=== PATIENT | female | born 1940 | race African-American/Black ===

== ENCOUNTER 2016-11-22 17:30 | Observation (INO) | payer OTHER ==
--- NOTE | 2016-11-22 17:50 | PDOC ---
History of Present Illness <Vera Guaman - Last Filed: 11/22/16 22:27> <Hansa French - Last Filed: 11/22/16 22:36> - General Stated Complaint: CHEST PAIN Time Seen by Provider: 11/22/16 17:43 - History of Present Illness Initial Comments: 11/22/16 22:22 76 y/o F with a PMHx of stroke, NSTEMI (2013), cataracts, HTN, hypercholesterolemia, anxiety presents to the ED, BIBA from home, with left sided chest pain. Patient complained of chest pain to her A OPERATOR, who called ambulance. Patient had a stress test done in 2013, which showed no evidence of ischemia and normal LV size and function. Denies SOB, headache, dizziness. Denies diaphoresis, nausea, vomiting, diarrhea. PCP: Dr. Radha Goldberg (Vera Guaman) Past History <Vera Guaman - Last Filed: 11/22/16 22:27> - Past Medical History Anemia: No Asthma: No Cancer: No Cardiac Disorders: No CVA: No COPD: No CHF: No Dementia: No Diabetes: No GI Disorders: No Disorders: No HTN: Yes Hypercholesterolemia: Yes Liver Disease: No Psychiatric Problems: Yes (anxienty,) Suicide Attempt (Hx): No Seizures: No Thyroid Disease: No - Surgical History Abdominal Surgery: No Appendectomy: No Cardiac Surgery: No Cholecystectomy: Yes Lung Surgery: No Neurologic Surgery: No Orthopedic Surgery: No - Immunization History Immunization Up to Date: Yes - Psycho/Social/Smoking Cessation Hx Anxiety: Yes Suicidal Ideation: No Smoking Status: Yes Smoking History: Never smoked Have you smoked in the past 12 months: No Number of Cigarettes Smoked Daily: 10 'Breaking Loose' booklet given: 11/01/12 Hx Alcohol Use: No Drug/Substance Use Hx: No Substance Use Type: None, Alcohol Hx Substance Use Treatment: No <Hansa French - Last Filed: 11/22/16 22:36> - Past Medical History Allergies/Adverse Reactions: Allergies Allergy/AdvReac Type Severity Reaction Status Date / Time ibuprofen Allergy Unknown Verified 11/22/16 18:10 Home Medications: Ambulatory Orders Acetaminophen [Tylenol -] 1,000 mg PO Q6H #100 tablet 05/26/16 Aspirin [Aspirin EC] 325 mg PO DAILY 05/26/16 Atorvastatin Ca [Lipitor] 20 mg PO HS 05/26/16 Lisinopril [Prinivil -] 40 mg PO DAILY 05/26/16 Metoprolol Succinate [Toprol Xl -] 50 mg PO DAILY 05/26/16 Ranolazine [Ranexa -] 500 mg PO BID 05/26/16 Sertraline HCl [Zoloft -] 50 mg PO DAILY 05/26/16 Tramadol HCl 50 mg PO BID PRN 05/26/16 Cardiac Specific PMH - Complaint Specific PMHX Pacemaker: No <Hansa French - Last Filed: 11/22/16 22:36> Review of Systems <Vera Guaman - Last Filed: 11/22/16 22:27> <Hansa French - Last Filed: 11/22/16 22:36> - Review of Systems Comments:: 11/22/16 22:23 CONSTITUTIONAL: Absent: fever, chills, diaphoresis, generalized weakness, malaise, loss of appetite HEENT: Absent: rhinorrhea, nasal congestion, throat pain, throat swelling, difficulty swallowing, mouth swelling, ear pain, eye pain, visual changes CARDIOVASCULAR: Absent: chest pain, syncope, palpitations, irregular heart rate , lightheadedness, peripheral edema RESPIRATORY: Absent: cough, shortness of breath, dyspnea with exertion, orthopnea, wheezing, stridor, hemoptysis GASTROINTESTINAL: Absent: abdominal pain, abdominal distension, nausea, vomiting , diarrhea, constipation, melena, hematochezia GENITOURINARY: Absent: dysuria, frequency, urgency, hesitancy, hematuria, flank pain, genital pain MUSCULOSKELETAL: Absent: myalgia, arthralgia, joint swelling SKIN: Absent: rash, itching, pallor HEMATOLOGIC/IMMUNOLOGIC: Absent: easy bleeding, easy bruising, lymphadenopathy, frequent infections ENDOCRINE: Absent: unexplained weight gain, unexplained weight loss, heat intolerance, cold intolerance NEUROLOGIC: Absent: headache, focal weakness or paresthesias, dizziness, unsteady gait, seizure, mental status changes, bladder or bowel incontinence PSYCHIATRIC: Absent: anxiety, depression, suicidal or homicidal ideation, hallucinations. (Vera Guaman) *Physical Exam <Vera Guaman - Last Filed: 11/22/16 22:27> <ManoloHansa Fernandez - Last Filed: 11/22/16 22:36> - Vital Signs Last Vital Signs Temp Pulse Resp BP Pulse Ox 98.1 F 75 22 150/67 99 11/22/16 18:00 11/22/16 18:00 11/22/16 18:00 11/22/16 18:00 11/22/16 18:00 - Physical Exam Comments: 11/22/16 22:23 GENERAL: Well developed, well nourished. Awake and alert. No acute distress. Obese. HEENT: Normocephalic, atraumatic. PERRLA, EOMI. No conjunctival pallor. Sclera are non-icteric. Moist mucous membranes. Oropharynx is clear. NECK: Supple. Full ROM. No JVD. Carotid pulses 2+ and symmetric, without bruits. No thyromegaly. No lymphadenopathy. CARDIOVASCULAR: Regular rate and rhythm. No murmurs, rubs, or gallops. Distal pulses are 2+ and symmetric. PULMONARY: No evidence of respiratory distress. Lungs clear to auscultation bilaterally. No wheezing, rales or rhonchi. ABDOMINAL: Protuberant but soft. Non-tender. Non-distended. No rebound or guarding. No organomegaly. Normoactive bowel sounds. MUSCULOSKELETAL: Normal range of motion at all joints. No bony deformities or tenderness. No CVA tenderness. EXTREMITIES: No cyanosis. No clubbing. No pitting edema. No calf tenderness. SKIN: Warm and dry. Normal capillary refill. No rashes. No jaundice. NEUROLOGICAL: Alert, awake, appropriate. Cranial nerves 2-12 intact. No deficits to light touch and temperature in face, upper extremities and lower extremities. No motor deficits in the in face, upper extremities and lower extremities. Normoreflexic in the upper and lower extremities. Normal speech. Toes are downgoing bilaterally. Gait is normal without ataxia. PSYCHIATRIC: Cooperative. Good eye contact. Appropriate mood and affect. (Vera Guaman) Heart Score/ECG Review - History History: Slightly suspicious - Electrocardiogram EKG: Normal - Age Age: >/= 65 - Risk Factors Risk Factors Heart Score: Yes Hx Hypertension, Yes Hx Obesity Based on the list above the patient has:: 1-2 risk factors - Troponin Troponin: </= normal limit - Score Heart Score - Total: 3 - ECG Intrepretation Rhythm: Regular Rhythm - P and MN Atrial Enlargement: Left Delta Wave(s) Present: No WPW: No - ST and T Early Repolarization: No Flattened T Waves: Yes Prolonged Q-T Interval: Yes - ECG Impressions Torsades dmitriy Pointes: No WPW: No <Hansa French - Last Filed: 11/22/16 22:36> ED Treatment Course - LABORATORY CBC & Chemistry Diagram: 11/22/16 18:36 11/22/16 19:56 <Vera Guaman - Last Filed: 11/22/16 22:27> - LABORATORY CBC & Chemistry Diagram: 11/22/16 18:36 11/22/16 19:56 <Hansa French - Last Filed: 11/22/16 22:36> - ADDITIONAL ORDERS Additional order review: Laboratory Results 11/22/16 11/22/16 11/22/16 19:56 19:56 18:36 INR Sodium 142 Cancelled Potassium 4.1 Cancelled Chloride 107 Cancelled Carbon Dioxide 29 Cancelled Anion Gap 6 L Cancelled BUN 11 D Cancelled Creatinine 0.7 Cancelled Creat Clearance w eGFR > 60 Cancelled Random Glucose 77 D Cancelled Calcium 9.0 Cancelled Magnesium 2.1 Cancelled Total Bilirubin 0.3 D Cancelled AST 17 Cancelled ALT 18 D Cancelled Alkaline Phosphatase 83 Cancelled Creatine Kinase 45 Cancelled Troponin I < 0.02 Cancelled B-Natriuretic Peptide 465.78 H Cancelled Total Protein 6.8 Cancelled Albumin 3.1 L Cancelled 11/22/16 18:36 INR 1.08 Sodium Potassium Chloride Carbon Dioxide Anion Gap BUN Creatinine Creat Clearance w eGFR Random Glucose Calcium Magnesium Total Bilirubin AST ALT Alkaline Phosphatase Creatine Kinase Troponin I B-Natriuretic Peptide Total Protein Albumin 11/22/16 18:36 RBC 3.91 MCV 90.8 MCHC 33.6 RDW 14.0 MPV 10.8 Neutrophils % 49.9 Lymphocytes % 30.8 Monocytes % 15.4 H Eosinophils % 3.2 Basophils % 0.7 - RADIOLOGY Radiology Studies Ordered: Category Date Time Status CHEST X-RAY PORTABLE* [RAD] Stat Radiology 11/22/16 19:26 Taken *DC/Admit/Observation/Transfer <Vera Guaman - Last Filed: 11/22/16 22:27> - Discharge Dispostion Admit: Yes <Hansa French - Last Filed: 11/22/16 22:36> Diagnosis at time of Disposition: Chest pain Qualifiers: Chest pain type: precordial pain Qualified Code(s): R07.2 - Precordial pain - Referrals Referrals: Radha Goldberg MD [Primary Care Provider] - - Attestations Scribe Attestion: 11/22/16 22:23 Documentation prepared by Vera Guaman, acting as medical center manager for Hansa French MD. (Vera Guaman
[2016-11-22 19:20] LABS: BASOPHIL 0.7 % (0-2.0); EOSINOPHIL 3.2 % (0-4.5); MCH 30.5 pg (25.7-33.7); MCHC 33.6 g/dl (32.0-36.0); MEAN CELL VOLUME 90.8 fl (80-96); MEAN PLT VOLUME 10.8 fl (7.5-11.1); NEUTROPHILS 49.9 % (42.8-82.8); PLATELET COUNT 191 K/MM3 (134-434); WHITE BLOOD COUNT 6.3 K/mm3 (4.0-10.0)
[2016-11-22 19:28] LABS: INR 1.08 (0.82-1.09); PROTHROMBIN TIME (PATIENT) 11.9 SEC (9.98-11.88)
[2016-11-22 20:56] LABS: ALBUMIN 3.1 g/dl (3.4-5.0); ANION GAP 6 (8-16); BILIRUBIN,TOTAL 0.3 mg/dL (0.2-1.0); CO2 29 mmol/L (21-32); CREATININE 0.7 mg/dL (0.55-1.02); GLUCOSE,RANDOM 77 mg/dL (74-106); MAGNESIUM 2.1 mg/dL (1.8-2.4); SGOT/AST 17 U/L (15-37); SGPT/ALT 18 U/L (12-78); TOT PROT 6.8 g/dl (6.4-8.2)
[2016-11-22 20:59] LABS: ALK PHOS 83 U/L (45-117)
[2016-11-22 21:12] LABS: CPK 45 IU/L (26-192); TROPONIN I < 0.02 ng/ml (0.00-0.05)
--- NOTE | 2016-11-22 22:34 | PN ---
Teaching Attending Note Name of Resident: Flash Whiting ATTENDING PHYSICIAN STATEMENT I saw and evaluated the patient. I reviewed the resident's note and discussed the case with the resident. I agree with the resident's findings and plan as documented. SUBJECTIVE: 76 yo F with pmhx of CVA, NSTEMI (14'), Cataracts, HTN, HLD, and anxiety who presents with chest pain. Last stress was done (), which showed no evidence of Ischemia. States her pain is more in her colette-epigastric area radiating upto her chest. States her chest pain has improved and denies any shortness of breath PCP: Dr. Goldberg ALLERGIES; NSAIDS OBJECTIVE: Physical: VS: Vital Signs Period Temp Pulse Resp BP Sys/Carbajal Pulse Ox Last 24 Hr 98.1 F 75 22 150/67 99 GEN:NAD, resting in bed HEENT: NCAT, PERRL, Throat without erythema or exudates CARD: I/IVSem RRR S1, S2 RESP: CTAB ABD: BSX4, NTD to palpation EXT: - C/C/E CBCD WBC 6.3 K/mm3 (4.0-10.0) 11/22/16 18:36 RBC 3.91 M/mm3 (3.60-5.2) 11/22/16 18:36 Hgb 11.9 GM/dL (10.7-15.3) 11/22/16 18:36 Hct 35.5 % (32.4-45.2) 11/22/16 18:36 MCV 90.8 fl (80-96) 11/22/16 18:36 MCHC 33.6 g/dl (32.0-36.0) 11/22/16 18:36 RDW 14.0 % (11.6-15.6) 11/22/16 18:36 Plt Count 191 K/MM3 (134-434) 11/22/16 18:36 MPV 10.8 fl (7.5-11.1) 11/22/16 18:36 CMP Sodium 142 mmol/L (136-145) 11/22/16 19:56 Potassium 4.1 mmol/L (3.5-5.1) 11/22/16 19:56 Chloride 107 mmol/L (98-107) 11/22/16 19:56 Carbon Dioxide 29 mmol/L (21-32) 11/22/16 19:56 Anion Gap 6 (8-16) L 11/22/16 19:56 BUN 11 mg/dL (7-18) D 11/22/16 19:56 Creatinine 0.7 mg/dL (0.55-1.02) 11/22/16 19:56 Creat Clearance w eGFR > 60 (>60) 11/22/16 19:56 Random Glucose 77 mg/dL (74-106) D 11/22/16 19:56 Calcium 9.0 mg/dL (8.5-10.1) 11/22/16 19:56 Total Bilirubin 0.3 mg/dL (0.2-1.0) D 11/22/16 19:56 AST 17 U/L (15-37) 11/22/16 19:56 ALT 18 U/L (12-78) D 11/22/16 19:56 Alkaline Phosphatase 83 U/L (45-117) 11/22/16 19:56 Total Protein 6.8 g/dl (6.4-8.2) 11/22/16 19:56 Albumin 3.1 g/dl (3.4-5.0) L 11/22/16 19:56 CARDIAC ENZYMES Creatine Kinase 45 IU/L (26-192) 11/22/16 19:56 Troponin I < 0.02 ng/ml (0.00-0.05) 11/22/16 19:56 EKG: NSR, No acute St-T changes CXR: No acute process HEART 3 Home Medications Medication Instructions Recorded Acetaminophen [Tylenol -] 1,000 mg PO Q6H #100 tablet 05/26/16 Aspirin [Aspirin EC] 325 mg PO DAILY 05/26/16 Atorvastatin Ca [Lipitor] 20 mg PO HS 05/26/16 Lisinopril [Prinivil -] 40 mg PO DAILY 05/26/16 Metoprolol Succinate [Toprol Xl -] 50 mg PO DAILY 05/26/16 Ranolazine [Ranexa -] 500 mg PO BID 05/26/16 Sertraline HCl [Zoloft -] 50 mg PO DAILY 05/26/16 Tramadol HCl 50 mg PO BID PRN 05/26/16 ECHO- 04/28 ASSESSMENT AND PLAN: 76 yo f with hx of obesity, NSTEMI?, Cataracts, HTN, HLD, CVA who presents with chest pain 1.) Chest Pain- Atypical - RO ACS - Trend Trop/EKG - ASA - HEART 3 - Morphine prn pain - C/W Ranexa - Echo - C/W BB - lipid Panel/A1c - C/w Statin - 02 2L NC 2.) Abdominal Pain- /Gastritis - Omeprazole 3.) HTN - C/W Home meds 4.) HLD - Chk. Lipid panel - C/W Statin 5.) Dvt Ppx - Ambulate
[2016-11-22] MEDS ORDERED: ASPIRIN 81 MG CHEWABLE TABLETS PO ONE (22:45)
[2016-11-22] MEDS ORDERED: morphine CARPU-JECT 2 MG/1 ML DISP.SYRIN IVPUSH PRN (23:30)
[2016-11-22] MEDS ORDERED: PANTOPRAZOLE 40 MG TABLET (FP) PO ONE (23:30)
--- NOTE | 2016-11-22 23:54 | HP ---
CHIEF COMPLAINT: Chest Pain PCP: Radha Goldberg HISTORY OF PRESENT ILLNESS: 76 y.o. F with significant PMH of CVA 3-4 years ago, NSTEMI (2014 w/ no ischemia ), HTN, HLD, former smoker presenting with 2 months of intermittent substernal chest pain. Patient brought in by ambulance after she told her home health aid about the pain. Pain is pressure-like, nonradiating, 6/10, worse upon coughing, and lasts a few seconds. Patient takes ranexa to alleviate the pain. Patient also endorses luq abdominal pain. Patient has never had a cardiac catheterization or colonoscopy in the past. Denies fevers, chills, N/V/D/C, SOB , palpitations, hematemesis, hematochezia. ER course was notable for: (1) CBC/BMP- wnl. Trops negative x1 (2) CXR (3) EKG- nsr, left atrial enlargement Recent Travel: denies PAST MEDICAL HISTORY: CVA (3-4 yrs ago with no residual deficits), NSTEMI in 2013, cataracts, htn, hld, anxiety, rheumatoid arthritis PAST SURGICAL HISTORY: cholecystectomy and foot surgery Social History: Smoking: previous smoker 1 ppd >30 years Alcohol: denies Drugs: denies Family History: HTN- mother, HLD-daughter Allergies ibuprofen Allergy (Unknown, Verified 11/22/16 18:10) , SWELLING HOME MEDICATIONS: Home Medications Medication Instructions Recorded Acetaminophen [Tylenol -] 1,000 mg PO Q6H #100 tablet 05/26/16 Aspirin [Aspirin EC] 325 mg PO DAILY 05/26/16 Atorvastatin Ca [Lipitor] 20 mg PO HS 05/26/16 Lisinopril [Prinivil -] 40 mg PO DAILY 05/26/16 Metoprolol Succinate [Toprol Xl -] 50 mg PO DAILY 05/26/16 Ranolazine [Ranexa -] 500 mg PO BID 05/26/16 Sertraline HCl [Zoloft -] 50 mg PO DAILY 05/26/16 Tramadol HCl 50 mg PO BID PRN 05/26/16 REVIEW OF SYSTEMS CONSTITUTIONAL: Absent: fever, chills, diaphoresis, generalized weakness, malaise, loss of appetite, weight change HEENT: Absent: rhinorrhea, nasal congestion, throat pain, throat swelling, difficulty swallowing, mouth swelling, ear pain, eye pain, visual changes CARDIOVASCULAR: Absent: chest pain, syncope, palpitations, irregular heart rate, lightheadedness , peripheral edema RESPIRATORY: Absent: cough, shortness of breath, dyspnea with exertion, orthopnea, wheezing, stridor, hemoptysis GASTROINTESTINAL: Absent: abdominal pain, abdominal distension, nausea, vomiting, diarrhea, constipation, melena, hematochezia GENITOURINARY: Absent: dysuria, frequency, urgency, hesitancy, hematuria, flank pain, genital pain MUSCULOSKELETAL: Absent: myalgia, arthralgia, joint swelling, back pain, neck pain SKIN: Absent: rash, itching, pallor HEMATOLOGIC/IMMUNOLOGIC: Absent: easy bleeding, easy bruising, lymphadenopathy, frequent infections ENDOCRINE: Absent: unexplained weight gain, unexplained weight loss, heat intolerance, cold intolerance NEUROLOGIC: Absent: headache, focal weakness or paresthesias, dizziness, unsteady gait, seizure, mental status changes, bladder or bowel incontinence PSYCHIATRIC: Absent: anxiety, depression, suicidal or homicidal ideation, hallucinations. PHYSICAL EXAMINATION Vital Signs - 24 hr 11/22/16 18:00 Temperature 98.1 F Pulse Rate 75 Respiratory 22 Rate Blood Pressure 150/67 O2 Sat by Pulse 99 Oximetry (%) GENERAL: Awake, alert, and fully oriented, in no acute distress. HEAD: Normal with no signs of trauma. EYES: Pupils equal, round and reactive to light, extraocular movements intact, sclera anicteric, conjunctiva clear. No lid lag. EARS, NOSE, THROAT: Oropharynx clear without exudates. Moist mucous membranes. NECK: Normal range of motion, supple without lymphadenopathy, JVD, or masses. LUNGS: Breath sounds equal, clear to auscultation bilaterally. No wheezes, and no crackles. No accessory muscle use. HEART: Regular rate and rhythm, normal S1 and S2, +murmur over right and left sternal borders (3/6) ABDOMEN: Soft, +epigastric and LUQ tenderness to palpation, not distended, normoactive bowel sounds, no guarding, no rebound, no masses. No hepatomegaly or splenomegaly. MUSCULOSKELETAL: Normal range of motion at all joints. No bony deformities or tenderness. No CVA tenderness. UPPER EXTREMITIES: 2+ pulses, warm, well-perfused. No cyanosis. No clubbing. No peripheral edema. LOWER EXTREMITIES: 2+ pulses, warm, well-perfused. No calf tenderness. No peripheral edema. NEUROLOGICAL: Cranial nerves II-XII intact. Normal speech. Gait not assessed PSYCHIATRIC: Cooperative. Good eye contact. Appropriate mood and affect. Laboratory Results - last 24 hr 11/22/16 11/22/16 11/22/16 18:36 18:36 18:36 WBC 6.3 RBC 3.91 Hgb 11.9 Hct 35.5 MCV 90.8 MCH 30.5 MCHC 33.6 RDW 14.0 Plt Count 191 MPV 10.8 Neutrophils % 49.9 Lymphocytes % 30.8 Monocytes % 15.4 H Eosinophils % 3.2 Basophils % 0.7 INR 1.08 Sodium Cancelled Potassium Cancelled Chloride Cancelled Carbon Dioxide Cancelled Anion Gap Cancelled BUN Cancelled Creatinine Cancelled Creat Clearance w eGFR Cancelled Random Glucose Cancelled Calcium Cancelled Magnesium Cancelled Total Bilirubin Cancelled AST Cancelled ALT Cancelled Alkaline Phosphatase Cancelled Creatine Kinase Cancelled Troponin I Cancelled B-Natriuretic Peptide Cancelled Total Protein Cancelled Albumin Cancelled 11/22/16 11/22/16 19:56 19:56 WBC RBC Hgb Hct MCV MCH MCHC RDW Plt Count MPV Neutrophils % Lymphocytes % Monocytes % Eosinophils % Basophils % INR Sodium 142 Potassium 4.1 Chloride 107 Carbon Dioxide 29 Anion Gap 6 L BUN 11 D Creatinine 0.7 Creat Clearance w eGFR > 60 Random Glucose 77 D Calcium 9.0 Magnesium 2.1 Total Bilirubin 0.3 D AST 17 ALT 18 D Alkaline Phosphatase 83 Creatine Kinase 45 Troponin I < 0.02 B-Natriuretic Peptide 465.78 H Total Protein 6.8 Albumin 3.1 L Chest x-ray report pending ASSESSMENT/PLAN: 76 y.o. F with multiple medical comorbidities presenting with atypical chest pain admitted for R/o ACS #Atypical chest piain, r/o ACS -Troponins negative x1, Trend troponins -Repeat EKG in the AM -Echo pending -Lipid panel pending -A1c pending -Morphine 1 mg q4h prn for pain -Continue home medications, Ranexa 500 mg po bid, Toporol xl 50 mg po daily, & Lipitor 20 mg po hs -O2 NC as needed, maintain O2 >90% #Abdominal Pain, Gastritis vs GERD -Will start a trial of protonix 40 mg po daily #HTN -Continue lisinopril 40 mg po daily, toporol xl 50 mg po daily #HLD -Continue lipitor 20 mg po hs #FEN/GI -no fluids @ this time -electrolytes wnl -sodium controlled diet #Ppx -DVT- SCD's both legs -GI- Protonix 40 mg po daily Dispo: D/c tomorrow pending trops, ekg, and echo Visit type - Emergency Visit Emergency Visit: Yes Care time: The patient presented to the Emergency Department on the above date and was hospitalized for further evaluation of their emergent condition. - New Patient This patient is new to me today: Yes Date on this admission: 11/22/16 - Critical Care Critical Care patient: No
[2016-11-23] MEDS ORDERED: ASPIRIN 81 MG CHEWABLE TABLETS ONE (00:51)
[2016-11-23 03:56] VITALS: BMI 30.7
[2016-11-23 06:52] LABS: BASOPHIL 1.2 % (0-2.0); EOSINOPHIL 4.5 % (0-4.5); MCH 29.8 pg (25.7-33.7); MEAN CELL VOLUME 90.3 fl (80-96); MEAN PLT VOLUME 9.8 fl (7.5-11.1); NEUTROPHILS 40.1 % (42.8-82.8); PLATELET COUNT 161 K/MM3 (134-434); RDW 13.9 % (11.6-15.6); WHITE BLOOD COUNT 5.8 K/mm3 (4.0-10.0)
--- NOTE | 2016-11-23 07:18 | PN ---
Physical Exam: SUBJECTIVE: 76 y.o. F with significant PMH of CVA 3-4 years ago, NSTEMI (2014 w/ no ischemia ), HTN, HLD, former smoker presenting with 2 months of intermittent substernal chest pain. Pain is pressure-like, nonradiating, 6/10, worse upon coughing, and lasts a few seconds.Patient was brought in by ambulance after her home health aid heard her discussing about the pain with the daughter. The pain is intermittent and had been investigated in the past for NSTE ACS about 3 years ago when she also had a stress test then that has been normal. Patient takes ranexa to alleviate the pain. Patient also endorses luq abdominal pain. Patient has never had a cardiac catheterization or colonoscopy in the past. Denies fevers, chills, N/V/D/C, SOB, palpitations, hematemesis, hematochezia. ER course was notable for: (1) CBC/BMP- wnl. Trops negative x1 (2) CXR (3) EKG- nsr, left atrial enlargement Recent Travel: denies PAST MEDICAL HISTORY: CVA (3-4 yrs ago with no residual deficits), NSTEMI in 2013, cataracts, htn, hld, anxiety, rheumatoid arthritis PAST SURGICAL HISTORY: cholecystectomy and foot surgery Social History: Smoking: previous smoker 1 ppd >30 years Alcohol: denies Drugs: denies Family History: HTN- mother, HLD-daughter Allergies ibuprofen Allergy (Unknown, Verified 11/22/16 18:10) , SWELLING HOME MEDICATIONS: Home Medications Medication Instructions Recorded Acetaminophen [Tylenol -] 1,000 mg PO Q6H #100 tablet 05/26/16 Aspirin [Aspirin EC] 325 mg PO DAILY 05/26/16 Atorvastatin Ca [Lipitor] 20 mg PO HS 05/26/16 Lisinopril [Prinivil -] 40 mg PO DAILY 05/26/16 Metoprolol Succinate [Toprol Xl -] 50 mg PO DAILY 05/26/16 Ranolazine [Ranexa -] 500 mg PO BID 05/26/16 Sertraline HCl [Zoloft -] 50 mg PO DAILY 05/26/16 Tramadol HCl 50 mg PO BID PRN 05/26/16 REVIEW OF SYSTEMS CONSTITUTIONAL: Absent: fever, chills, diaphoresis, generalized weakness, malaise, loss of appetite, weight change HEENT: Absent: rhinorrhea, nasal congestion, throat pain, throat swelling, difficulty swallowing, mouth swelling, ear pain, eye pain, visual changes CARDIOVASCULAR: Absent: chest pain, syncope, palpitations, irregular heart rate, lightheadedness , peripheral edema RESPIRATORY: Absent: cough, shortness of breath, dyspnea with exertion, orthopnea, wheezing, stridor, hemoptysis GASTROINTESTINAL: Absent: abdominal pain, abdominal distension, nausea, vomiting, diarrhea, constipation, melena, hematochezia GENITOURINARY: Absent: dysuria, frequency, urgency, hesitancy, hematuria, flank pain, genital pain MUSCULOSKELETAL: Absent: myalgia, arthralgia, joint swelling, back pain, neck pain SKIN: Absent: rash, itching, pallor HEMATOLOGIC/IMMUNOLOGIC: Absent: easy bleeding, easy bruising, lymphadenopathy, frequent infections ENDOCRINE: Absent: unexplained weight gain, unexplained weight loss, heat intolerance, cold intolerance NEUROLOGIC: Absent: headache, focal weakness or paresthesias, dizziness, unsteady gait, seizure, mental status changes, bladder or bowel incontinence PSYCHIATRIC: Absent: anxiety, depression, suicidal or homicidal ideation, hallucinations. OBJECTIVE: Vital Signs Period Temp Pulse Resp BP Sys/Carbajal Pulse Ox Last 24 Hr 97.9 F-98.6 F 75-80 14-18 133-174/54-70 97-97 Selected Entries 11/23/16 11/23/16 03:50 04:00 Temperature 98.6 F Pulse Rhythm [ Regular Left Radial] Pulse Strength Weak [Left Radial] Respiratory 18 14 Rate Blood Pressure 174/63 133/54 O2 Sat by Pulse 97 Oximetry (%) Oxygen Delivery Room Air Method GENERAL: The patient is awake, alert, and fully oriented, in no acute distress. HEAD: Normal with no signs of trauma. EYES: PERRL, extraocular movements intact, sclera anicteric, conjunctiva clear. No ptosis. ENT: Ears normal, nares patent, oropharynx clear without exudates, moist mucous membranes. NECK: Trachea midline, full range of motion, supple. LUNGS: Breath sounds equal, clear to auscultation bilaterally, no wheezes, no crackles, no accessory muscle use. HEART: Regular rate and rhythm, S1, S2 without murmur, rub or gallop. ABDOMEN: Soft, nontender, nondistended, normoactive bowel sounds, no guarding, no rebound, no hepatosplenomegaly, no masses. EXTREMITIES: 2+ pulses, warm, well-perfused, no edema. NEUROLOGICAL: Cranial nerves II through XII grossly intact. Normal speech, gait not observed. PSYCH: Normal mood, normal affect. SKIN: Warm, dry, normal turgor, no rashes or lesions noted Laboratory Results - last 24 hr 11/23/16 11/23/16 03:00 05:30 WBC 5.8 RBC 3.71 Hgb 11.1 Hct 33.5 MCV 90.3 MCH 29.8 MCHC 33.0 RDW 13.9 Plt Count 161 MPV 9.8 Neutrophils % 40.1 L Lymphocytes % 39.1 D Monocytes % 15.1 H Eosinophils % 4.5 Basophils % 1.2 Troponin I < 0.02 CBCD WBC 5.8 K/mm3 (4.0-10.0) 11/23/16 05:30 RBC 3.71 M/mm3 (3.60-5.2) 11/23/16 05:30 Hgb 11.1 GM/dL (10.7-15.3) 11/23/16 05:30 Hct 33.5 % (32.4-45.2) 11/23/16 05:30 MCV 90.3 fl (80-96) 11/23/16 05:30 MCHC 33.0 g/dl (32.0-36.0) 11/23/16 05:30 RDW 13.9 % (11.6-15.6) 11/23/16 05:30 Plt Count 161 K/MM3 (134-434) 11/23/16 05:30 MPV 9.8 fl (7.5-11.1) 11/23/16 05:30 CMP Sodium 143 mmol/L (136-145) 11/23/16 05:30 Potassium 4.7 mmol/L (3.5-5.1) 11/23/16 05:30 Chloride 109 mmol/L (98-107) H 11/23/16 05:30 Carbon Dioxide 29 mmol/L (21-32) 11/23/16 05:30 Anion Gap 5 (8-16) L 11/23/16 05:30 BUN 12 mg/dL (7-18) 11/23/16 05:30 Creatinine 0.8 mg/dL (0.55-1.02) 11/23/16 05:30 Creat Clearance w eGFR > 60 (>60) 11/23/16 05:30 Calcium 9.4 mg/dL (8.5-10.1) 11/23/16 05:30 Total Bilirubin 0.4 mg/dL (0.2-1.0) D 11/23/16 05:30 AST 16 U/L (15-37) 11/23/16 05:30 ALT 17 U/L (12-78) 11/23/16 05:30 Alkaline Phosphatase 76 U/L (45-117) 11/23/16 05:30 Total Protein 6.5 g/dl (6.4-8.2) 11/23/16 05:30 Albumin 2.9 g/dl (3.4-5.0) L 11/23/16 05:30 Active Medications Generic Name Dose Route Start Last Admin Trade Name Freq PRN Reason Stop Dose Admin Aspirin 325 mg 11/23/16 10:00 Ecotrin - PO DAILY [facility] Atorvastatin Calcium 20 mg 11/23/16 22:00 Lipitor - PO HS [facility] Lisinopril 40 mg 11/23/16 10:00 Prinivil PO DAILY [facility] Metoprolol Succinate 50 mg 11/23/16 10:00 Toprol Xl - PO DAILY [facility] Morphine Sulfate 1 mg 11/22/16 23:30 Morphine Injection - IVPUSH Q4H PRN PAIN Pantoprazole Sodium 40 mg 11/23/16 10:00 Protonix - PO DAILY [facility] Ranolazine 500 mg 11/23/16 10:00 Ranexa - PO BID [facility] Sertraline HCl 50 mg 11/23/16 10:00 Zoloft - PO DAILY [facility] ASSESSMENT/PLAN: 1. Atypical chest pain - chronic recurrent on ranexa - troponins, ECho, EKG- all negative for ACS - Echo - no evidence of wall motion abnormality- ( moderate to severe aortic regurg and Pulmonary hypertension, with elevated R ventricular pressure to 52 mmHg , moderate pulmonic valvular regurgitation and tricuspid regurgitation) -Discussed with PCP- who confirmed patient had been on ranexa for long t - Will refer to cardio as outpatient to follow up for likely stress test. -cont ranexa , asa , statin and BB 2. LUQ pain- relieved with gas -PPI trial 3. H/o HTN: cont lisinopril and BB 4. HLP : LDL within goal , cont lipitor 5. For PT evaluation Problem List - Problems (1) Atypical chest pain Assessment/Plan: no evidence of wall motion abnormality on Echo, CXR, EKG troponins negative on ranexa to follow up ponce primary and events assistant on outpatient Code(s): R07.89 - OTHER CHEST PAIN (2) GERD (gastroesophageal reflux disease) Assessment/Plan: Protonix Code(s): K21.9 - GASTRO-ESOPHAGEAL REFLUX DISEASE WITHOUT ESOPHAGITIS Qualifiers: Esophagitis presence: esophagitis presence not specified Qualified Code(s): K21.9 - Gastro-esophageal reflux disease without esophagitis (3) Hypertension Assessment/Plan: Continue Lisinopril and Beta lucien Code(s): I10 - ESSENTIAL (PRIMARY) HYPERTENSION (4) Knee pain, chronic Code(s): M25.569 - PAIN IN UNSPECIFIED KNEE G89.29 - OTHER CHRONIC PAIN Qualifiers: Laterality: right Qualified Code(s): M25.561 - Pain in right knee; G89.29 - Other chronic pain (5) Rheumatoid arthritis Code(s): M06.9 - RHEUMATOID ARTHRITIS, UNSPECIFIED Qualifiers: Rheumatoid arthritis location: multiple sites
[2016-11-23 07:20] LABS: CHOLESTEROL 165 mg/dL (50-200); LDL CHOLESTEROL (ONLY SJRH) 62 mg/dL (5-100)
[2016-11-23 07:26] LABS: ALBUMIN 2.9 g/dl (3.4-5.0); ANION GAP 5 (8-16); CALCIUM 9.4 mg/dL (8.5-10.1); CO2 29 mmol/L (21-32); GLUCOSE,RANDOM 81 mg/dL (74-106)
[2016-11-23 07:34] LABS: ALK PHOS 76 U/L (45-117); BILIRUBIN,TOTAL 0.4 mg/dL (0.2-1.0); CREATININE 0.8 mg/dL (0.55-1.02); SGOT/AST 16 U/L (15-37); SGPT/ALT 17 U/L (12-78); TOT PROT 6.5 g/dl (6.4-8.2)
[2016-11-23] MEDS ORDERED: ASPIRIN 325 MG ENTERIC COATED TABLET (FP) PO SCH (10:00)
[2016-11-23] MEDS ORDERED: METOPROLOL SUCCINATE 50 MG TAB.SR.24H (FP) PO SCH (10:00)
[2016-11-23] MEDS ORDERED: RANOLAZINE E.R. 500 MG TABLET (FP) PO SCH (10:00)
[2016-11-23] MEDS ORDERED: PANTOPRAZOLE 40 MG TABLET (FP) PO SCH (10:00)
[2016-11-23] MEDS ORDERED: LISINOPRIL 20 MG TABLET (FP) PO SCH (10:00)
[2016-11-23] MEDS ORDERED: SERTRALINE HCL 50 MG TABLET (FP) PO SCH (10:00)
[2016-11-23 10:49] VITALS: PULSE 77
--- NOTE | 2016-11-23 13:27 | PN ---
Teaching Attending Note Name of Resident: Ally Pace ATTENDING PHYSICIAN STATEMENT I saw and evaluated the patient. I reviewed the resident's note and discussed the case with the resident. I agree with the resident's findings and plan as documented. SUBJECTIVE: no fever or chills, denies any cp at time of evaluation. reports intermittent LUQ pain and epigastric pain at home. alsop reports some L sided cp with upper body movements and respiration and exertion. while being examined, she reported L sided abd pain that started suddenly typical for her gas pain OBJECTIVE: NAD CV : RRR. 3/6 SM at base . No radiation Lungs : L base crackles ABd: soft, ND, mild TTP in LUQ. no rebound tenderness or guarding . nl BS Ext : no edema ASSESSMENT AND PLAN: 76 y/o lady with h/o TIA, HTn and HLP who presneted with chronic recurrent CP . 1- Chest pain. atypical in nature , especially with TTP over L sided chest, and pleuritic nature. component of abd pain as well ( possible IBS, vs co nstipation ) EKG with no ischemic changes, trop Nl x 2 . stress test in 2013, 2014 neg for ischemia . unclear if she has sign of chronic angina as out pt . - Echo pending read - PPI - need follow up with PCP for possible no urgent stress test - will refer to card as out pt - cont ranexa , asa , statin and BB 2- H/o HTN: cont lisinopril and BB 3- HLP : LDL within goal , cont lipitor dispo: will dc home pending Echo report . refer Dr. Corcoran PT mary
[2016-11-23 13:55] VITALS: BP 149/64; TEMP 98.6
--- NOTE | 2016-11-23 17:24 | DS ---
Physical Exam: SUBJECTIVE: Patient seen and examined OBJECTIVE: Vital Signs Period Temp Pulse Resp BP Sys/Carbajal Pulse Ox Last 24 Hr 97.9 F-98.6 F 75-80 14-18 133-174/52-70 97-99 PHYSICAL EXAM GENERAL: The patient is awake, alert, and fully oriented, in no acute distress. HEAD: Normal with no signs of trauma. EYES: PERRL, extraocular movements intact, sclera anicteric, conjunctiva clear. ENT: Ears normal, nares patent, oropharynx clear without exudates, moist mucous membranes. NECK: Trachea midline, full range of motion, supple. LUNGS: Breath sounds equal, clear to auscultation bilaterally, no wheezes, no crackles, no accessory muscle use. HEART: Regular rate and rhythm, S1, S2, 3/6 murmur R sternal border, no rub or gallop. ABDOMEN: Soft, nontender, nondistended, normoactive bowel sounds, no guarding, no rebound, no hepatosplenomegaly, no masses. EXTREMITIES: 2+ pulses, warm, well-perfused, no edema. NEUROLOGICAL: Cranial nerves II through XII grossly intact. Normal speech, gait not observed. PSYCH: Normal mood, normal affect. SKIN: Warm, dry, normal turgor, no rashes or lesions noted. LABS Laboratory Results - last 24 hr 11/23/16 11/23/16 11/23/16 03:00 05:30 05:30 WBC 5.8 RBC 3.71 Hgb 11.1 Hct 33.5 MCV 90.3 MCH 29.8 MCHC 33.0 RDW 13.9 Plt Count 161 MPV 9.8 Neutrophils % 40.1 L Lymphocytes % 39.1 D Monocytes % 15.1 H Eosinophils % 4.5 Basophils % 1.2 Sodium 143 Potassium 4.7 Chloride 109 H Carbon Dioxide 29 Anion Gap 5 L BUN 12 Creatinine 0.8 Creat Clearance w eGFR > 60 Random Glucose 81 Hemoglobin A1c % Calcium 9.4 Total Bilirubin 0.4 D AST 16 ALT 17 Alkaline Phosphatase 76 Troponin I < 0.02 Total Protein 6.5 Albumin 2.9 L Triglycerides Cholesterol Total LDL Cholesterol HDL Cholesterol 11/23/16 11/23/16 05:30 05:30 WBC RBC Hgb Hct MCV MCH MCHC RDW Plt Count MPV Neutrophils % Lymphocytes % Monocytes % Eosinophils % Basophils % Sodium Potassium Chloride Carbon Dioxide Anion Gap BUN Creatinine Creat Clearance w eGFR Random Glucose Hemoglobin A1c % 4.8 D Calcium Total Bilirubin AST ALT Alkaline Phosphatase Troponin I Total Protein Albumin Triglycerides 55 Cholesterol 165 Total LDL Cholesterol 62 HDL Cholesterol 85 H HOSPITAL COURSE: Date of Admission:11/22/16 Date of Discharge: 11/23/16 Patient was admitted for chronic atypical chest pain without evidence of ACS on EKG, CXR,troponins (0.02 x2) Echo (no evidence of wall motion abnormality- moderate to severe aortic regurg and Pulmonary hypertension, with elevated R ventricular pressure to 52 mmHg , moderate pulmonic valvular regurgitation and tricuspid regurgitation). She had no acute symptoms on presentation - no SOB/Cough, but was brought in by ambulance based on history from her new home worker. She is currently stable on ranexa. She will follow up with procurement professional and her primary physician for likely stress test. She complained more about LUQ pain, and will continue protonix. She will continue control her hypertension with lisinopril and BB and continue her lipitor and ASA. Minutes to complete discharge: 45 Discharge Summary Reason For Visit: CHEST PAIN Current Active Problems Atypical chest pain (Acute) Back pain (Acute) Angina of effort (Chronic) GERD (gastroesophageal reflux disease) (Chronic) Hypertension (Chronic) Condition: Improved - Instructions Diet, Activity, Other Instructions: please continue all your home medications except losartan. We spoke to Dr. Boyd and she instructed us to tell you to stop losartan 100mg. eat a low sodium low fat diet you need to see a procurement professional (heart doctor) you will need a stress test as an outpatient we will refer you to a procurement professional Dr. Hernandes please see your primary care doctor in 1 week if you begin to experience your chest pain or worsening of your symtpoms again go to the nearest emergency room it was a pleasure taking care of you Referrals: Donovan Tubbs MD [Staff Physician] - 2 Weeks Radha Goldberg MD [Primary Care Provider] - 1 Week Disposition: HOME - Home Medications Comprehensive Discharge Medication List: Ambulatory Orders RX: Acetaminophen [Tylenol .Extra-Strength -] 1,000 mg PO Q6H #100 tablet RX: Aspirin [Aspirin EC] 325 mg PO DAILY 05/26/16 RX: Atorvastatin Ca [Lipitor] 20 mg PO HS 05/26/16 RX: Lisinopril [Prinivil -] 40 mg PO DAILY 05/26/16 RX: Metoprolol Succinate [Toprol XL -] 50 mg PO DAILY 05/26/16 RX: Ranolazine [Ranexa -] 500 mg PO BID 05/26/16 RX: Sertraline HCl [Zoloft -] 50 mg PO DAILY 05/26/16 RX: Tramadol HCl 50 mg PO BID PRN 05/26/16 RX: Montelukast Na [Singulair -] 10 mg PO HS 11/23/16 RX: Ropinirole HCl 0.75 mg PO HS 11/23/16 Problem List - Problems (1) Atypical chest pain Assessment/Plan: no evidence of wall motion abnormality on Echo, CXR, EKG troponins negative on ranexa [facility] and procurement professional on outpatient Code(s): R07.89 - OTHER CHEST PAIN (2) GERD (gastroesophageal reflux disease) Assessment/Plan: Protonix Code(s): K21.9 - GASTRO-ESOPHAGEAL REFLUX DISEASE WITHOUT ESOPHAGITIS Qualifiers: Esophagitis presence: esophagitis presence not specified Qualified Code(s): K21.9 - Gastro-esophageal reflux disease without esophagitis (3) Hypertension Assessment/Plan: Continue Lisinopril and Beta lucien Code(s): I10 - ESSENTIAL (PRIMARY) HYPERTENSION (4) Knee pain, chronic Code(s): M25.569 - PAIN IN UNSPECIFIED KNEE G89.29 - OTHER CHRONIC PAIN Qualifiers: Laterality: right Qualified Code(s): M25.561 - Pain in right knee; G89.29 - Other chronic pain (5) Rheumatoid arthritis Code(s): M06.9 - RHEUMATOID ARTHRITIS, UNSPECIFIED Qualifiers: Rheumatoid arthritis location: multiple sites This patient is new to me today: Yes Date on this admission: 11/23/16 Emergency Visit: Yes ED Registration Date: 11/22/16 Care time: The patient presented to the Emergency Department on the above date and was hospitalized for further evaluation of their emergent condition. Critical Care patient: No Total Critical Care Time (in minutes): 45 Critical Care Statement: The care of this patient involved high complexity decision making to prevent further life threatening deterioration of the patient 's condition and/or to evaluate & treat vital organ system(s) failure or risk of failure. - Discharge Referral Referred to [facility] No
--- NOTE | 2016-11-23 18:19 | EKG ---
Test Reason : Blood Pressure : / mmHG Vent. Rate : 081 BPM Atrial Rate : 081 BPM P-R Int : 174 ms QRS Dur : 084 ms QT Int : 400 ms P-R-T Axes : 069 060 065 degrees QTc Int : 464 ms SINUS RHYTHM WITH PREMATURE ATRIAL COMPLEXES MINIMAL VOLTAGE CRITERIA FOR LVH, MAY BE NORMAL VARIANT BORDERLINE ECG WHEN COMPARED WITH ECG OF 22-NOV-2016 18:36, PREMATURE ATRIAL COMPLEXES ARE NOW PRESENT Confirmed by VINEET ALEXANDER MD ([id number]) on 11/23/2016 6:19:50 PM Referred By: BABS ALEXANDER Confirmed By:VINEET ALEXANDER MD
--- NOTE | 2016-11-23 19:03 | EKG ---
Test Reason : Blood Pressure : / mmHG Vent. Rate : 076 BPM Atrial Rate : 076 BPM P-R Int : 154 ms QRS Dur : 078 ms QT Int : 416 ms P-R-T Axes : 055 050 057 degrees QTc Int : 468 ms NORMAL SINUS RHYTHM POSSIBLE LEFT ATRIAL ENLARGEMENT BORDERLINE ECG WHEN COMPARED WITH ECG OF 21-JUN-2015 21:16, NO SIGNIFICANT CHANGE WAS FOUND BASELINE ARTIFACTS. Confirmed by VINEET ALEXANDER MD ([id number]) on 11/23/2016 7:02:47 PM Referred By: SIRISHA Confirmed By:VINEET ALEXANDER MD
[2016-11-23] MEDS ORDERED: ATORVASTATIN CA 20 MG TABLET (FP) PO SCH (22:00)
== END 2016-11-23 18:50 | disposition home or self-care (01) ==
LOC: JER 17:30 → JERBED 22:36 → UNDOADMOB 23:05 → J2W 11-23 03:45
PROVIDERS: ADMIT Internal Medicine; ATTEND Internal Medicine
DX: R07.89 Other chest pain (principal); I10 Essential (primary) hypertension; I25.2 Old myocardial infarction; E78.5 Hyperlipidemia, unspecified; K21.9 Gastro-esophageal reflux disease without esophagitis; I20.8 Other forms of angina pectoris; F41.9 Anxiety disorder, unspecified; H26.9 Unspecified cataract; Z86.73 Personal history of transient ischemic attack (TIA), and cerebral infarction without residual deficits; Z88.6 Allergy status to analgesic agent; Z79.82 Long term (current) use of aspirin; M54.9 Dorsalgia, unspecified
CPT/HCPCS: 36415; 71010-TC; 80053; 80061; 83036; 83721; 83735; 83880; 84484; 85025; 85610; 93005; 93010; 93306-TC; 99284-25; G0378

== ENCOUNTER 2017-06-26 13:56 | Emergency (ER) | payer OTHER ==
[2017-06-26 14:17] VITALS: BMI 29.0
[2017-06-26] MEDS ORDERED: METOCLOPRAMIDE HCL INJECTION 10 MG/2 ML VIAL IVPB ONE (14:31)
[2017-06-26] MEDS ORDERED: ACETAMINOPHEN 325 MG TABLET (FP) PO ONE (14:31)
--- NOTE | 2017-06-26 14:38 | PDOC ---
History of Present Illness - General Chief Complaint: Headache Stated Complaint: HEADACHE Time Seen by Provider: 06/26/17 14:17 History Source: Patient, Other ([employer]ER) - History of Present Illness Timing/Duration: reports: other Associated Symptoms: denies: confusion, fever/chills, loss of consciousness, nausea/vomiting, trouble walking, vision changes Past History - Past Medical History Allergies/Adverse Reactions: Allergies Allergy/AdvReac Type Severity Reaction Status Date / Time ibuprofen Allergy Unknown Verified 06/26/17 14:10 Home Medications: Ambulatory Orders Acetaminophen [Tylenol .Extra-Strength -] 1,000 mg PO Q6H #100 tablet 05/26/16 Aspirin [Aspirin EC] 325 mg PO DAILY 05/26/16 Atorvastatin Ca [Lipitor] 20 mg PO HS 05/26/16 Lisinopril [Prinivil -] 40 mg PO DAILY 05/26/16 Metoprolol Succinate [Toprol XL -] 50 mg PO DAILY 05/26/16 Ranolazine [Ranexa -] 500 mg PO BID 05/26/16 Sertraline HCl [Zoloft -] 50 mg PO DAILY 05/26/16 Tramadol HCl 50 mg PO BID PRN 05/26/16 Montelukast Na [Singulair -] 10 mg PO HS 11/23/16 Ropinirole HCl 0.75 mg PO HS 11/23/16 Ranitidine HCl 150 mg PO DAILY 06/26/17 Anemia: No Asthma: No Cancer: No Cardiac Disorders: No CVA: Yes (03/2017) COPD: No CHF: No Dementia: No Diabetes: No GI Disorders: No Disorders: No HTN: Yes Hypercholesterolemia: Yes Liver Disease: No Psychiatric Problems: Yes (anxienty,) Seizures: No Thyroid Disease: No - Surgical History Abdominal Surgery: No Appendectomy: No Cardiac Surgery: No Cholecystectomy: Yes Lung Surgery: No Neurologic Surgery: No Orthopedic Surgery: No - Immunization History Immunization Up to Date: Yes - Suicide/Smoking/Psychosocial Hx Smoking Status: Yes Smoking History: Never smoked Have you smoked in the past 12 months: No Number of Cigarettes Smoked Daily: 10 If you are a former smoker, when did you quit?: january 2016 Information on smoking cessation initiated: No 'Breaking Loose' booklet given: 11/01/12 Hx Alcohol Use: No Drug/Substance Use Hx: No Substance Use Type: None, Alcohol Hx Substance Use Treatment: No Review of Systems - Review of Systems Constitutional: No: Chills, Fever HEENTM: No: Blurred Vision ABD/GI: No: Nausea, Vomiting Musculoskeletal: No: Back Pain, Neck Pain Neurological: Yes: Headache. No: Numbness, Tingling, Weakness, Dizziness *Physical Exam - Vital Signs Last Vital Signs Temp Pulse Resp BP Pulse Ox 97.8 F 71 18 143/76 100 06/26/17 14:00 06/26/17 14:00 06/26/17 14:00 06/26/17 14:00 06/26/17 14:00 - Physical Exam General Appearance: Yes: Appropriately Dressed. No: Apparent Distress HEENT: positive: Normal Voice Neck: positive: Supple Respiratory/Chest: negative: Respiratory Distress Integumentary: positive: Dry, Warm Neurologic: positive: room cleaner II-XII NML intact, Fully Oriented, Alert, Normal Mood/ Affect, Motor Strength 5/5, Finger to Nose, Other (no nystagmus, Pallavi intact, no drift) ED Treatment Course - LABORATORY CBC & Chemistry Diagram: 06/26/17 14:45 06/26/17 14:45 - RADIOLOGY Radiology Studies Ordered: Category Date Time Status HEAD CT WITHOUT CONTRAST [CT] Stat CT Scan 06/26/17 14:17 Ordered CHEST X-RAY PORTABLE* [RAD] Stat Radiology 06/26/17 14:30 Ordered Medical Decision Making - Medical Decision Making 06/26/17 14:33 76-year-old female, history of CVA in 2013 with subsequent chronic headaches per patient, hypertension, hyperlipidemia, ambulates w/ walker, BIB aide for worsening headache. Patient states she gets almost daily headaches to occiput and right mu-ism since her stroke and for unclear reasons does not usually take anything for pain. States over the past 2 days pain has worsened. Denies visual changes, dizziness, nausea, vomiting or acute focal weakness. No URI symptoms, photophobia, neck stiffness, fever or chills. See exam Acute on chronic WOODSON Well renee in NAD w/ no focal deficits -pain control -Labs including ESR -CTH though low suspicion for acute intracranial pathology 06/26/17 17:[address] head read as "no evidence of acute intracranial pathology. In comparison to 2014 CT, there is interval development of several chronic right frontal subcortical infarcts and subcortical chronic microvascular ischemic changes that may be somewhat increased" versus prior imaging. Patient and family now states that in addition to her CVA in 2013, she had a TIA 01/2017 and was admitted to [facility]. I contacted ED physician in the ED at [facility] was able to pull up patient's medical records and states patient was admitted for a fall 02/[address] head at the time read as negative for any acute intracranial pathology, but did show chronic microvascular ischemic changes. States CT did not mention any chronic right frontal subcortical infarcts. I then contacted Dr. Mckinney of neurology here and discussed case with him. States that given chronic findings on CT and that patient is non-focal w/ no new neuro sxs, that pt most likely be discharged with close follow-up with her PMD. Had lengthy discussion with patient and family going over her CT results. Patient states she would like to be discharged home and family feels safe taking patient home to see her doctor this week. Strict return precautions given. ED attg aware and agrees w/ disposition *DC/Admit/Observation/Transfer Diagnosis at time of Disposition: Headache Qualifiers: Headache type: unspecified Headache chronicity pattern: chronic headache Intractability: not intractable Qualified Code(s): R51 - Headache - Discharge Dispostion Disposition: HOME Condition at time of disposition: Good - Referrals - Patient Instructions Additional Instructions: Your CAT scan did not show worse any new abnormalities/ There were several chronic appearing changes that was discussed with the neurologist here who agrees that given that patient has no new neurological symptoms with a normal neurological exam, that patient can be safely discharged home to follow-up with her doctor this week. Patient should return immediately if she develops worsening headache, dizziness , nausea, vomiting, numbness or focal weakness. Otherwise, patient should follow-up with her PMD this week - Post Discharge Activity
[2017-06-26] MEDS ORDERED: ACETAMINOPHEN 325 MG TABLET (FP) ONE (14:50)
[2017-06-26] MEDS ORDERED: METOCLOPRAMIDE HCL INJECTION 10 MG/2 ML VIAL ONE (14:50)
[2017-06-26 14:51] LABS: BASO % 0.6 % (0-2.0); EOS % 2.3 % (0-4.5); HEMATOCRIT 32.9 % (32.4-45.2); LYMPH % 31.5 % (8-40); MCHC 33.2 g/dl (32.0-36.0); MEAN CELL VOLUME 93.2 fl (80-96); MEAN PLT VOLUME 10.5 fl (7.5-11.1); MONO % 16.4 % (3.8-10.2); NEUT % 49.2 % (42.8-82.8); PLATELET COUNT 153 K/MM3 (134-434); RBC 3.53 M/mm3 (3.60-5.2); RDW 14.7 % (11.6-15.6); WHITE BLOOD COUNT 5.2 K/mm3 (4.0-10.0)
[2017-06-26 15:15] LABS: ALBUMIN 3.1 g/dl (3.4-5.0); ANION GAP 5 (8-16); BILIRUBIN,TOTAL 0.4 mg/dL (0.2-1.0); BLOOD UREA NITROGEN 11 mg/dL (7-18); CALCIUM 8.6 mg/dL (8.5-10.1); CHLORIDE 107 mmol/L (98-107); CO2 26 mmol/L (21-32); CREATININE 0.6 mg/dL (0.55-1.02); GLUCOSE,RANDOM 78 mg/dL (74-106); SGPT/ALT 31 U/L (12-78); SODIUM 138 mmol/L (136-145); TOT PROT 6.8 g/dl (6.4-8.2)
[2017-06-26 15:16] LABS: ALK PHOS 61 U/L (45-117); POTASSIUM 5.1 mmol/L (3.5-5.1); SGOT/AST 42 U/L (15-37)
[2017-06-26 17:47] VITALS: BP 129/75; PULSE 66; TEMP 97.7
== END 2017-06-26 17:47 | disposition home or self-care (01) ==
LOC: JER 13:56
PROC: 3E033GC Introduction of Other Therapeutic Substance into Peripheral Vein, Percutaneous Approach (ICD-10-PCS; principal; 2017-06-26)
DX: R51 Headache (principal); I10 Essential (primary) hypertension; E78.00 Pure hypercholesterolemia, unspecified; F41.9 Anxiety disorder, unspecified; R26.89 Other abnormalities of gait and mobility; Z99.89 Dependence on other enabling machines and devices; Z86.73 Personal history of transient ischemic attack (TIA), and cerebral infarction without residual deficits; Z87.891 Personal history of nicotine dependence
CPT/HCPCS: 36415; 70450-TC; 71045-TC-FY; 80053; 85025; 85651; 96374; 99282-25

== ENCOUNTER 2017-12-02 14:07 | Emergency (ER) | payer OTHER ==
[2017-12-02 14:22] VITALS: BP 129/66; PULSE 66; TEMP 97.7; BMI 29.0
[2017-12-02] MEDS ORDERED: PANTOPRAZOLE SOD 40 MG SUSPENSION PACKET PO ONE (14:54)
[2017-12-02] MEDS ORDERED: MAG HYDROX/AL HYDROX/SIMETH 30 ML UNIT-DOSE CUP PO ONE (15:00)
[2017-12-02] MEDS ORDERED: ACETAMINOPHEN 325 MG TABLET (FP) PO ONE (15:00)
--- NOTE | 2017-12-02 15:07 | PDOC ---
History of Present Illness - General Chief Complaint: Lightheaded Stated Complaint: DIZZINESS Time Seen by Provider: 12/02/17 14:36 History Source: Patient - History of Present Illness Initial Comments: 77 y.o. F with significant PMH of CVA 3-4 years ago, NSTEMI (2013 w/ no ischemia ), HTN, HLD, former smoker presenting with a complaint of lightheaded. Patient states that she was trying to puke at the same time she felt lightheaded which lasted for few minutes and then went away. Denies chest pain, palpitations, new numbness or weakness in any part of body. Denies change in vision and hearing. Denies fever and chills. Denies vomiting, diarrhoea and constipation. Denies burning micturation. Recent Travel: denies PAST MEDICAL HISTORY: CVA (3-4 yrs ago with no residual deficits), NSTEMI in 2013, cataracts, htn, hld, anxiety, rheumatoid arthritis PAST SURGICAL HISTORY: cholecystectomy. Past History - Past Medical History Allergies/Adverse Reactions: Allergies Allergy/AdvReac Type Severity Reaction Status Date / Time ibuprofen Allergy Unknown Verified 12/02/17 14:19 Home Medications: Ambulatory Orders Acetaminophen [Tylenol .Extra-Strength -] 1,000 mg PO Q6H #100 tablet 05/26/16 Aspirin [Aspirin EC] 325 mg PO DAILY 05/26/16 Atorvastatin Ca [Lipitor] 20 mg PO HS 05/26/16 Lisinopril [Prinivil -] 40 mg PO DAILY 05/26/16 Metoprolol Succinate [Toprol XL -] 50 mg PO DAILY 05/26/16 Ranolazine [Ranexa -] 500 mg PO BID 05/26/16 Sertraline HCl [Zoloft -] 50 mg PO DAILY 05/26/16 Tramadol HCl 50 mg PO BID PRN 05/26/16 Montelukast Na [Singulair -] 10 mg PO HS 11/23/16 Ropinirole HCl 0.75 mg PO HS 11/23/16 Ranitidine HCl 150 mg PO DAILY 06/26/17 Anemia: No Asthma: No Cancer: No Cardiac Disorders: No CVA: Yes (03/2017) COPD: No CHF: No Dementia: No Diabetes: No GI Disorders: No Disorders: No HTN: Yes Hypercholesterolemia: Yes Liver Disease: No Psychiatric Problems: Yes (anxienty,) Seizures: No Thyroid Disease: No - Surgical History Abdominal Surgery: No Appendectomy: No Cardiac Surgery: No Cholecystectomy: Yes Lung Surgery: No Neurologic Surgery: No Orthopedic Surgery: No - Immunization History Immunization Up to Date: Yes - Suicide/Smoking/Psychosocial Hx Smoking Status: Yes Smoking History: Never smoked Have you smoked in the past 12 months: No Number of Cigarettes Smoked Daily: 10 If you are a former smoker, when did you quit?: january 2016 Information on smoking cessation initiated: No 'Breaking Loose' booklet given: 11/01/12 Hx Alcohol Use: No Drug/Substance Use Hx: No Substance Use Type: None, Alcohol Hx Substance Use Treatment: No Review of Systems - Review of Systems Constitutional: No: Chills, Fever HEENTM: No: Blurred Vision, Tearing, Double Vision, Tinnitus Respiratory: No: Cough, SOB at Rest, Wheezing, Productive cough Cardiac (ROS): Yes: Lightheadedness. No: Chest Pain, Edema, Irregular Heart Rate, Palpitations ABD/GI: No: Abdominal Distended, Diarrhea, Nausea, Vomiting, Indigestion : No: Burning, Dysuria, Frequency Neurological: No: Headache, Tingling *Physical Exam - Vital Signs Last Vital Signs Temp Pulse Resp BP Pulse Ox 97.7 F 66 18 129/66 98 12/02/17 14:20 12/02/17 14:20 12/02/17 14:20 12/02/17 14:20 12/02/17 14:20 - Physical Exam General Appearance: Yes: Appropriately Dressed HEENT: positive: JAYDE, Normal ENT Inspection, Normal Voice, Symmetrical. negative: Pharynx Normal Neck: positive: Trachea midline, Supple Respiratory/Chest: positive: Lungs Clear, Normal Breath Sounds. negative: Chest Tender, Respiratory Distress, Accessory Muscle Use, Crackles, Wheezing Cardiovascular: positive: Regular Rhythm, Regular Rate, S1, S2. negative: Edema , JVD Gastrointestinal/Abdominal: positive: Normal Bowel Sounds, Tender (mild tenderness on deep palpation in epigastric area ), Soft. negative: Distended, Guarding Extremity: positive: Normal Inspection. negative: Tender, Pedal Edema Neurologic: positive: Fully Oriented, Alert, Normal Mood/Affect, Normal Response ED Treatment Course - LABORATORY CBC & Chemistry Diagram: 12/02/17 18:43 12/02/17 16:29 - RADIOLOGY Radiology Studies Ordered: Category Date Time Status ABDOMEN US -LIMITED [US] Stat Ultrasound 12/02/17 14:55 Ordered Medical Decision Making - Medical Decision Making 12/02/17 15:07 77 y.o. F with significant PMH of CVA 3-4 years ago, NSTEMI (2014 w/ no ischemia ), HTN, HLD, former smoker presenting with a complaint of lightheaded. Patient states that she was trying to puke at the same time she felt lightheaded which lasted for few minutes and then went away. Denies chest pain, palpitations, new numbness or weakness in any part of body. Denies change in vision and hearing. Denies fever and chills. Denies vomiting, diarrhoea and constipation. Denies burning micturation We will get cbc, cmp, trop i, ekg and ultrasound liver. we will give her pantoprazole, mylenta and acetaminophen. 12/02/17 18:49 ekg reviewed. NSR, minimal votage criteria for LVH. qtc 493 CMP reviewed. ultrasound report reviewed. 12/02/17 18:50 CBC sent. patient feels better. 12/02/17 18:59 cbc reviewed. pt feels better. discussed with Dr. ventura. patinet can be dc home. *DC/Admit/Observation/Transfer Diagnosis at time of Disposition: Vasovagal reaction - Discharge Dispostion Disposition: HOME Condition at time of disposition: Stable Decision to Admit order: No - Referrals - Patient Instructions Printed Discharge Instructions: DI for Dizziness-Nonvertigo Additional Instructions: Drink plenty of liquid. Take your medications as you were taking it before. If you develop vomiting, lightheadedness, loss of consciousness chest pain, shortness of breath go to nearest ER - Post Discharge Activity
[2017-12-02] MEDS ORDERED: ONDANSETRON 4 MG/2 ML VIAL IVPB ONE (15:10)
[2017-12-02] MEDS ORDERED: SODIUM CHLORIDE 500 ML IV STA (15:11)
[2017-12-02] MEDS ORDERED: FAMOTIDINE 20 MG/50 ML IVPB 20 MG/50 ML MG IVPB ONE ×2 (15:11→15:28)
[2017-12-02] MEDS ORDERED: MAG HYDROX/AL HYDROX/SIMETH 30 ML UNIT-DOSE CUP ONE (15:27)
[2017-12-02] MEDS ORDERED: ACETAMINOPHEN 325 MG TABLET (FP) ONE (15:27)
[2017-12-02] MEDS ORDERED: ONDANSETRON 4 MG/2 ML VIAL ONE (15:28)
[2017-12-02] MEDS ORDERED: PANTOPRAZOLE 40 MG TABLET (FP) ONE (15:34)
--- NOTE | 2017-12-02 15:39 | PDOC ---
Attending Attestation - Resident Resident Name: Pillo Orta - ED Attending Attestation I have performed the following: I have examined & evaluated the patient, The case was reviewed & discussed with the resident, I agree w/resident's findings & plan, Exceptions are as noted - HPI HPI: 12/02/17 15:35 77 year old female with past medical history of anxiety, hypertension, hyperlipidemia, stroke presents from home with nausea vomiting and lightheadedness. The patient reported that yesterday she felt well. This morning , she woke up with some abdominal cramping and nausea and had an episode of vomiting. While vomiting, she felt lightheaded and dizzy. She stated that once she vomited she felt significantly better but still reporting some upper abdominal discomfort. No chest pain or shortness of breath. Denies diarrhea or fevers. Phthisic contacts or recent travels. Came into the ER for further evaluation. - Physicial Exam PE: 12/02/17 15:36 GENERAL: Awake, alert, and fully oriented, in no acute distress HEAD: No signs of trauma EYES: EOMI, sclera anicteric, conjunctiva clear ENT: Auricles normal inspection, hearing grossly normal, nares patent, dry mucous membranes. NECK: Normal ROM, supple, no lymphadenopathy, JVD, or masses LUNGS: Breath sounds equal, clear to auscultation bilaterally. No wheezes, and no crackles HEART: Regular rate and rhythm, normal S1 and S2, no murmurs, rubs or gallops ABDOMEN: Soft, No guarding, no rebound. No masses. TTP epigastric and LUQ. EXTREMITIES: Normal range of motion, no edema. No clubbing or cyanosis. No cords, erythema, or tenderness NEUROLOGICAL: Cranial nerves II through XII grossly intact. Normal speech, SKIN: Warm, Dry, normal turgor, no rashes or lesions noted. - Medical Decision Making 12/02/17 15:36 Vital Signs Temp Pulse Resp BP Pulse Ox 97.7 F 66 18 129/66 98 12/02/17 14:20 12/02/17 14:20 12/02/17 14:20 12/02/17 14:20 12/02/17 14:20 77 year old s/p cecilia patient with nausea and vomiting. Differential includes gastritis, pancreatitis, liver disease, choledocholithiasis, gastritis, acute coronary syndrome. We'll obtain labs including lipase and troponin. Given the tenderness, I suspect this is likely gastrointestinal in origin and very much less likely to be acute coronary syndrome. However, we'll need to investigate. Give GERD medications and reassess.
[2017-12-02 17:19] LABS: PHOSPHOROUS 3.6 mg/dL (2.5-4.9)
[2017-12-02 17:20] LABS: ALBUMIN 3.1 g/dl (3.4-5.0); ANION GAP 9 MMOL/L (8-16); BLOOD UREA NITROGEN 10 mg/dL (7-18); CALCIUM 8.6 mg/dL (8.5-10.1); CHLORIDE 108 mmol/L (98-107); CO2 26 mmol/L (21-32); CREATININE 0.6 mg/dL (0.55-1.02); GLUCOSE,RANDOM 109 mg/dL (74-106); POTASSIUM 4.3 mmol/L (3.5-5.1); SGOT/AST 21 U/L (15-37); SGPT/ALT 25 U/L (12-78); SODIUM 143 mmol/L (136-145)
[2017-12-02 17:21] LABS: ALK PHOS 61 U/L (45-117); BILIRUBIN,TOTAL 0.4 mg/dL (0.2-1.0); TOT PROT 6.6 g/dl (6.4-8.2)
[2017-12-02 18:52] LABS: BASO % 0.7 % (0-2.0); HEMATOCRIT 35.4 % (32.4-45.2); HEMOGLOBIN 11.9 GM/dL (10.7-15.3); LYMPH % 19.8 % (8-40); MCH 31.5 pg (25.7-33.7); MCHC 33.6 g/dl (32.0-36.0); MEAN CELL VOLUME 93.9 fl (80-96); MEAN PLT VOLUME 10.5 fl (7.5-11.1); MONO % 11.4 % (3.8-10.2); NEUT % 66.1 % (42.8-82.8); PLATELET COUNT 139 K/MM3 (134-434); RBC 3.76 M/mm3 (3.60-5.2); RDW 13.6 % (11.6-15.6); WHITE BLOOD COUNT 5.8 K/mm3 (4.0-10.0)
--- NOTE | 2017-12-05 11:13 | EKG ---
Test Reason : Blood Pressure : / mmHG Vent. Rate : 073 BPM Atrial Rate : 073 BPM P-R Int : 148 ms QRS Dur : 068 ms QT Int : 448 ms P-R-T Axes : 062 054 068 degrees QTc Int : 493 ms NORMAL SINUS RHYTHM MINIMAL VOLTAGE CRITERIA FOR LVH, MAY BE NORMAL VARIANT PROLONGED QT ABNORMAL ECG WHEN COMPARED WITH ECG OF 23-NOV-2016 09:22, PREMATURE ATRIAL COMPLEXES ARE NO LONGER PRESENT Confirmed by MARU GAMA, THAI ([id number]) on 12/05/2017 11:13:05 AM Referred By: Confirmed By:THAI MAHONEY MD
== END 2017-12-02 19:20 | disposition home or self-care (01) ==
LOC: JER 14:07
PROC: 3E0337Z Introduction of Electrolytic and Water Balance Substance into Peripheral Vein, Percutaneous Approach (ICD-10-PCS; principal; 2017-12-02)
PROC: 3E033GC Introduction of Other Therapeutic Substance into Peripheral Vein, Percutaneous Approach (ICD-10-PCS; 2017-12-02)
PROC: 3E033GC Introduction of Other Therapeutic Substance into Peripheral Vein, Percutaneous Approach (ICD-10-PCS; 2017-12-02)
DX: R55 Syncope and collapse (principal); R42 Dizziness and giddiness; I25.2 Old myocardial infarction; I11.0 Hypertensive heart disease with heart failure; E78.5 Hyperlipidemia, unspecified; Z86.73 Personal history of transient ischemic attack (TIA), and cerebral infarction without residual deficits; Z87.891 Personal history of nicotine dependence
CPT/HCPCS: 36415; 76705-TC; 80053; 83690; 83735; 84100; 84484; 85025; 93005; 93010; 96361; 96365; 96375; 99281-25